=== PATIENT | male | born 1960 | race Two or more races ===

== ENCOUNTER 2019-09-11 20:57 | Emergency (ER) | payer MEDICAID, OTHER ==
[~2019-09-11] VITALS: Ht 165.1 cm; Wt 92.5 kg
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
[2019-09-11 21:28] LABS: BASOPHILS % (AUTO) 0.6 % (0.0-2.0); EOSINOPHILS % (AUTO) 1.2 % (0.0-6.0); HEMATOCRIT 46 % (39-51); HEMOGLOBIN 15.6 g/dL (13.5-17.5); LYMPHOCYTES # (AUTO) 4.3 /CMM (0.8-4.8); LYMPHOCYTES % (AUTO) 61.6 % (20.0-44.0); MEAN CORPUSCULAR HGB CONC 34 g/dl (31.0-36.0); MEAN CORPUSCULAR VOLUME 95 fL (80-96); MONOCYTES # (AUTO) 0.5 /CMM (0.1-1.30); MONOCYTES % (AUTO) 7.3 % (2.0-12.0); NEUTROPHILS % (AUTO) 29.3 % (43.0-81.0); PLATELET COUNT (AUTO) 285 /CMM (150-450); RED BLOOD CELL COUNT(AUTO) 4.89 MIL/uL (4.5-6.0); WHITE BLOOD COUNT (AUTO) 6.9 K/uL (4.3-11.0)
[2019-09-11] MEDS ORDERED: IV NS 0.9% 1,000 ML BAG IV ONE (21:30)
--- NOTE | 2019-09-11 21:30 | NUR ---
BLOOD COLLECTED AND SENT TO LAB
--- NOTE | 2019-09-11 21:30 | NUR ---
PT TAKEN TO CT
[2019-09-11 21:37] LABS: CALCIUM, SERUM 8.2 mg/dL (8.5-10.1); CARBON DIOXIDE 29 mmol/L (21-32); CHLORIDE 106 mmol/L (98-107); CREATININE 0.8 mg/dL (0.6-1.3); GLUCOSE 101 mg/dL (74-106); POTASSIUM 3.9 mmol/L (3.5-5.1); SODIUM SERUM 144 mmol/L (136-145); UREA NITROGEN, BLOOD 9 mg/dL (7-18)
--- NOTE | 2019-09-11 21:38 | NUR ---
PT BACK FROM CT
[2019-09-11 21:44] LABS: ALANINE AMINOTRANSFERASE 60 U/L (12-78); ALCOHOL, BLOOD 424 mg/dL (0-0); ALKALINE PHOSPHATASE 89 U/L (46-116); ASPARTATE AMINOTRANSFERASE 39 U/L (15-37); BILIRUBIN,DIRECT 0.1 mg/dL (0.0-0.2); BILIRUBIN,TOTAL 0.2 mg/dL (0.2-1.0); SALICYLATE 2.3 mg/dL (2.8-20.0); TOTAL PROTEIN, SERUM 7.7 g/dL (6.4-8.2)
[2019-09-11 21:45] LABS: ACETAMINOPHEN < 2 ug/ml (10-30)
--- NOTE | 2019-09-11 21:51 | NUR ---
URINE COLLECTED AND SENT TO LAB
[2019-09-11 22:07] LABS: APPEARANCE,URINE Clear (CLEAR); BILIRUBIN,URINE Negative (NEGATIVE); BLOOD, URINE Negative Ery/uL (NEGATIVE); COLOR,URINE Yellow (YELLOW); KETONES,URINE Negative (NEGATIVE); LEUKOCYTE ESTERASE ,URINE Negative (NEGATIVE); NITRITE, URINE Negative (NEGATIVE); PH,URINE 5.5 (5.0-8.0); PROTEIN,URINE Negative (NEGATIVE); UGLUCOSE Negative (NEGATIVE); UROBILINOGEN,URINE 0.2 EU/dL (0.2)
[2019-09-11 22:07] LABS: SERUM AMMONIA 27 umol/L (11-32)
[2019-09-11 22:09] LABS: NEUTROPHILS % (MANUAL) 32 (42-76)
[2019-09-11 22:10] LABS: EOSINOPHILS % (MANUAL) 1 % (0-4); LYMPHOCYTES % (MANUAL) 49 % (16-48); MONOCYTES % (MANUAL) 8 % (0-11.0); REACTIVE LYMPHOCYTES 10 % (0-0)
--- NOTE | 2019-09-11 22:39 | NUR ---
SEIZURE PRECAUTIONS IMPLEMENTED
--- NOTE | 2019-09-11 22:45 | NUR ---
PT TAKEN TO CT
--- NOTE | 2019-09-11 22:55 | NUR ---
SPOKE WITH PT'S AND DAUGHTER, STATES PT HAS BEEN OFF LIBRIUM (50MG) AND KEPPRA (500MG BID) FOR ABOUT 2 DAYS. FOLLOW UP APPOINTMENT WITH NEUROLOGIST IS NOT UNTIL NEXT MONTH. MD ELAINE.
--- NOTE | 2019-09-11 22:58 | NUR ---
PT BACK FROM CT
--- NOTE | 2019-09-11 23:39 | NUR ---
PT ROADTESTED. GAIT UNSTEADY. MADE AWARE
--- NOTE | 2019-09-12 04:52 | NUR ---
PT RESTING COMFORTABLY IN BED. VSS.NO ACUTE DISTRESS NOTED. SITTER AT BEDSIDE FOR SAFETY
--- NOTE | 2019-09-12 06:13 | NUR ---
Patient discharged to home in stable condition. Written and verbal after care instructions given. Patient AND FAMILY verbalize understanding of instruction.pt. ambulatory with a steady gait
[2019-09-12 06:16] VITALS: BP 134/87
== END 2019-09-12 06:17 | disposition home or self-care (01) ==
LOC: ER 20:59 → EDBD 20:59 → ER 09-12 06:17
DX: G93.40 Encephalopathy, unspecified (principal); F10.129 Alcohol abuse with intoxication, unspecified; Y90.8 Blood alcohol level of 240 mg/100 ml or more
CPT/HCPCS: 36415; 70450; 72125; 80048; 80076; 80305; 80307; 80329; 81001; 82140; 82962; 85025; 96360; 99285; G0480; J7030; 81000-TC